=== PATIENT | female | born 1995 | race Caucasian/White ===

== ENCOUNTER 2021-09-30 22:02 | Emergency (ER) | payer BC, OTHER, SELFPAY ==
--- NOTE | ~2021-09-30 | CT_ITS ---
EXAMINATION: CTA chest PE protocol DATE: 10/01/2021 07:47 CDT INDICATION: Left-sided chest pain. Elevated d-dimer. TECHNIQUE: Computed tomographic angiography (CTA) of the chest was performed with 100 mL Omnipaque-35 0 intravenous contrast. The dose-length product was 423.18 mGy-cm. Maximum intensity projection 3D-re constructions of the aorta and other arteries were constructed by the technologist on a separate work station. Automated exposure control and iterative reconstruction technique were employed. COMPARISON: None. FINDINGS: Study is technically adequate without evidence for pulmonary embolism. No significant pleur al or pericardial effusion. No thoracic lymphadenopathy. No evidence for aortic aneurysm or dissectio n. Upper abdomen is unremarkable. No focal airspace consolidation. No pneumothorax. No suspicious pul monary nodules or masses. IMPRESSION: 1. No acute cardiopulmonary disease. No evidence for pulmonary embolism. Reviewed, dictated and finalized at location A.
--- NOTE | 2021-09-30 22:06 | ECG_ITS ---
Measurements Intervals [place] Rate: 74 P: 23 CA: 148 QRS: 56 QRSD: 89 T: 39 QT: 367 QTc: 409 Interpretive Statements SINUS RHYTHM WITH SINUS ARRHYTHMIA NO PREVIOUS ECG AVAILABLE FOR COMPARISON Electronically Signed On 09-30-2021 22:54:21 CDT by Steph Nelson M.D.
[2021-09-30 22:22] VITALS: BP 112/77; PULSE 80; RESP 18; TEMP 36.8; O2SAT 100
[2021-09-30 22:25] LABS: Basophils Percent Auto 0.4 % (0.2-1.2); Eosinophils Absolute Auto 0.1 K/mm3 (0-0.3); Eosinophils Percent Auto 1.1 % (0-4.4); Hematocrit 32.1 % (37.0-47.0); Hemoglobin 10.7 g/dL (12.0-15.0); Immature Granulocyte Percent A 2.8 % (0-0.5); Lymphocytes Absolute Auto 2.42 K/mm3 (0.9-3.2); Lymphocytes Percent Auto 22.6 % (18.3-44.2); Mean Corpuscular HGB Conc 33.3 g/dl (32-36); Mean Corpuscular Hemoglobin 31.8 pg (26-34); Mean Corpuscular Volume 95.3 fl (80-100); Mean Platelet Volume 10.3 fl (7.4-10.4); Monocytes Absolute Auto 0.9 K/mm3 (0.1-0.6); Monocytes Percent Auto 8.3 % (2.6-8.5); Neutrophils Absolute Auto 6.9 K/mm3 (1.3-6.7); Neutrophils Percent Auto 64.8 % (45.5-73.1); Platelet Count Result 214 k/mm3 (150-375); Red Blood Count 3.37 M/mm3 (4.2-5.4); Red Cell Distribution Width 13.2 % (11.5-14.5); White Blood Count 10.7 K/mm3 (4.5-10.0)
[2021-09-30 22:35] LABS: Prothrombin Time 12.6 Seconds (11.1-14.7)
[2021-09-30 22:36] LABS: Partial Thromboplastin Time 25.6 SECONDS (22.3-36.8)
[2021-09-30 22:37] LABS: Alanine Aminotransferase 21 U/L (6-35); Albumin Level 3.8 g/dL (3.5-5.1); Alkaline Phosphatase 53 U/L (38-126); Anion Gap 5 mmol/L (8-16); Aspartate Amino Transferase 25 U/L (14-36); Bilirubin,Total 0.1 mg/dL (0.2-1.3); Blood Urea Nitrogen 13 mg/dL (7-17); Calcium 8.8 mg/dL (8.4-10.2); Carbon Dioxide 24 mmol/L (22-30); Chloride 106 mmol/L (98-107); Estimated CRCL calculation 75 ml/min; Estimated Glomerular Filt Rate > 60; Glucose 91 mg/dL (65-110); Lipase 142 U/L (23-300); Potassium 3.7 mmol/L (3.4-5.0); Sodium 135 mmol/L (137-145)
[2021-09-30 22:57] LABS: Troponin I < 0.012 ng/mL (0.000-0.034)
[2021-10-01 01:25] VITALS: BP 117/64; PULSE 82; RESP 18; O2SAT 99
--- NOTE | 2021-10-01 01:38 | ED.GENADULT ---
HPI - General Adult General Chief complaint: Chest Pain Stated complaint: chest pain Time Seen by Provider: 10/01/21 01:00 History of Present Illness HPI narrative: 26-year-old female that is 31 weeks presents to the emergency department for evaluation of left-sided chest pain. Patient states earlier this afternoon she began developing some left-sided chest pain that did radiate down her left arm. Patient also does describe some associated shortness of breath. Patient denies any prior history of PE or DVT. Patient did have COVID in the beginning of her and was advised to take a daily aspirin. Patient does have some long extremity swelling but denies any calf pain. Related Data Allergies Allergy/AdvReac Type Severity Reaction Status Date / Time clindamycin Allergy Anaphylaxis Verified 10/01/21 01:26 Review of Systems Review of Systems: CONSTITUTIONAL: Denies fever, chills, or sweats. EYES: Denies visual changes, redness, or discharge. ENT: Denies rhinorrhea, congestion, sore throat, or otalgia. CARDIOVASCULAR: See HPI RESPIRATORY: Denies cough or dyspnea. GASTROINTESTINAL: Denies abdominal pain, nausea, vomiting, or diarrhea. GENITOURINARY: Denies dysuria or hematuria. SKIN: Denies rash or itching. MUSCULOSKELETAL: Denies back pain, joint pain, or myalgia. NEUROLOGIC: Denies headache, numbness, or weakness. Exam Narrative: APPEARANCE: Well appearing, no pain, no distress, well-nourished. HEAD: normocephalic, atraumatic. EYES: PERRLA/EOMI, conjunctivae clear. NOSE: Normal no drainage THROAT: Pharynx clear, no exudate. NECK: Supple. No adenopathy, no masses. RESPIRATORY: Airway patent, respirations nonlabored. Clear to auscultation bilaterally, no rales, rhonchi, wheezing. CARDIOVASCULAR: Regular rate and rhythm without murmurs rubs or gallops. Some reproducible left-sided chest wall tenderness to palpation. ABDOMINAL: Soft, nontender, nondistended, normal bowel sounds MUSCULOSKELETAL: Moves all extremities. Strength/ROM intact, No edema, No calf tenderness. No medial thigh tenderness NEURO: Alert. Cranial nerves II through XII intact. Grossly intact SKIN: Warm, dry. Normal Color Course Course Emergency Course: Bedside M-mode ultrasound showed active movement with a heart rate of 143. Patient did have an elevated dimer so a CTA was ordered. Patient had negative serial troponins. CT was negative for pulm embolism. Patient does feel improved. Patient was updated on the results of her work-up. 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 Vital Signs Vital signs: Vital Signs Temperature 98.2 F 09/30/21 22:22 Pulse Rate 80 09/30/21 22:22 Respiratory Rate 18 09/30/21 22:22 Blood Pressure 112/77 09/30/21 22:22 Pulse Oximetry 100 09/30/21 22:22 Oxygen Delivery Room Air 09/30/21 22:22 Temperature 98.2 F 09/30/21 22:22 Pulse Rate 88 10/01/21 04:33 Respiratory Rate 18 10/01/21 04:33 Blood Pressure 102/67 10/01/21 04:33 Pulse Oximetry 99 10/01/21 04:33 Oxygen Delivery Room Air 09/30/21 22:22 Medical Decision Making Vital Signs Vital Signs: Vital Signs Temperature 98.2 F 09/30/21 22:22 Pulse Rate 80 09/30/21 22:22 Respiratory Rate 18 09/30/21 22:22 Blood Pressure 112/77 09/30/21 22:22 Pulse Oximetry 100 09/30/21 22:22 Oxygen Delivery Room Air 09/30/21 22:22 Temperature 98.2 F 09/30/21 22:22 Pulse Rate 88 10/01/21 04:33 Respiratory Rate 18 10/01/21 04:33 Blood Pressure 102/67 10/01/21 04:33 Pulse Oximetry 99 10/01/21 04:33 Oxygen Delivery Room Air 09/30/21 22:22 Lab Data Lab results reviewed: Yes I reviewed the patient's lab results. Result diagrams: 09/30/21 22:20 09/30/21 22:20 Labs: Lab Results 09/30/21 09/30/21 09/30/21 Range/Units 22:20 22:20 22:20 WBC 10.7 H (4.5-10.0) K/mm3 RBC 3.37 L (4.2-5
[2021-10-01 01:48] LABS: D Dimer 1.26 ug/mL (<0.48)
[2021-10-01 02:17] LABS: Troponin I < 0.012 ng/mL (0.000-0.034)
[2021-10-01 02:42] VITALS: BP 105/57; PULSE 77; RESP 16; O2SAT 100
[2021-10-01 03:48] VITALS: BP 105/67; PULSE 79; RESP 18; O2SAT 98
[2021-10-01 04:33] VITALS: BP 102/67; PULSE 88; RESP 18; O2SAT 99
[2021-10-01 05:54] VITALS: BP 116/18; PULSE 65; RESP 18; O2SAT 99
== END 2021-10-01 05:54 | disposition home or self-care (01) ==
PROVIDERS: Emergency Provider Emergency Medicine
DX: O26.893 Other specified pregnancy related conditions, third trimester (principal); R07.81 Pleurodynia; Z86.16 Personal history of COVID-19; Z79.82 Long term (current) use of aspirin; Z3A.31 31 weeks gestation of pregnancy
CPT/HCPCS: 36415; 71275; 80053; 83690; 84484; 85025; 85380; 85610; 85730; 93005; 99284; Q9967

== ENCOUNTER 2021-11-01 11:17 | Outpatient (CLI) | payer BC, OTHER, SELFPAY ==
[2021-11-01 12:34] VITALS: BP 115/72; PULSE 78
[2021-11-01 13:00] LABS: Appearance Urine Clear (Clear); Bilirubin Urine Negative (Negative); Glucose Urine UA Negative (Negative); Ketones Urine Negative (Negative); Leukocyte Esterase Ur Negative LEU/UL (Negative); Nitrate Urine Negative (Negative); Protein Urine Negative (Negative); Specific Grav Ur 1.015 (1.001-1.035); Urobilinogen Urine 0.2 mg/dL (<2.0); pH Urine 6.5 (5.0-9.0)
[2021-11-01 13:05] LABS: Amorphous Sediment Urine Few; Bacteria Urine Trace /hpf; Squamous Epithelial Cell Urine Rare /hpf (Few)
[2021-11-01 13:21] LABS: Add Urine Microscopic? YES; Blood Urine Trace-Intact (Negative); Color Urine Light Yellow (Yellow)
== END 2021-11-01 13:34 | disposition home or self-care (01) ==
LOC: ANHOBOP 12:04
PROVIDERS: Obstetrics & Gynecology; Visit Provider Obstetrics & Gynecology
DX: O42.90 Premature rupture of membranes, unspecified as to length of time between rupture and onset of labor, unspecified weeks of gestation (principal); Z3A.00 Weeks of gestation of pregnancy not specified
CPT/HCPCS: 59025; 81001

== ENCOUNTER 2021-11-21 18:29 | Observation (INO) | payer SELFPAY ==
--- NOTE | 2021-11-21 18:29 | OBADM ---
This patient, Mony Kuhn, admitted to the OB room Labor/Delivery/Recovery 120 for observation. Patient/family oriented to hospital policies and general routines including ID bracelet, bed and alarms, visiting hours, pain management, procedures, bathroom and other care routines, personal items, smoking policy, room service/diet, and visiting hours. Patient/Family are encouraged to report perceived risks to care and to ask questions if they do not understand what they are told or what they should do.
[2021-11-21 18:40] VITALS: TEMP 37; BMI 29.5
--- NOTE | 2021-11-21 19:54 | PC.NURSE ---
Updated Dr. Pak on patient unchanged SVE after monitoring. Patient is having irregular mild contractions with uterine irritability between. Abdomen palpates soft between contractions. movement palpated. FHT reactive. VSS. Order to discharge patient to home.
--- NOTE | 2021-12-13 20:24 | PM.OBTRLD ---
OB - Triage/Final Diagnosis Visit Information Comments/Additional reasons for admission: I have assessed the risk for this patient, Mony Kuhn, and determined that she would benefit from observation care. Final Diagnosis (1) False labor: Code(s): O47.9 - False labor, unspecified Status: Acute
== END 2021-11-21 20:23 | disposition home or self-care (01) ==
PROVIDERS: Admitting Provider Obstetrics & Gynecology; Visit Provider Obstetrics & Gynecology
DX: O47.1 False labor at or after 37 completed weeks of gestation (principal); Z3A.37 37 weeks gestation of pregnancy
CPT/HCPCS: G0378; G0379

== ENCOUNTER 2021-11-28 11:30 | Outpatient (CLI) | payer BC, OTHER, SELFPAY ==
[2021-11-28 11:42] LABS: Hematocrit 33.1 % (37.0-47.0); Hemoglobin 11.3 g/dL (12.0-15.0); Mean Corpuscular HGB Conc 34.1 g/dl (32-36); Mean Corpuscular Hemoglobin 31.2 pg (26-34); Mean Corpuscular Volume 91.4 fl (80-100); Mean Platelet Volume 10.7 fl (7.4-10.4); Platelet Count Result 192 k/mm3 (150-375); Red Blood Count 3.62 M/mm3 (4.2-5.4); White Blood Count 8.8 K/mm3 (4.5-10.0)
[2021-11-30 07:35] LABS: Rapid Plasma Reagin Non-Reactive (NonReactive)
== END 2021-11-28 11:31 | disposition home or self-care (01) ==
PROVIDERS: Visit Provider Obstetrics & Gynecology
DX: Z34.93 Encounter for supervision of normal pregnancy, unspecified, third trimester (principal); Z3A.00 Weeks of gestation of pregnancy not specified
CPT/HCPCS: 36415; 85027; 86592; 86850; 86900; 86901

== ENCOUNTER 2021-11-30 05:22 | Inpatient (IN) | payer BC, OTHER, SELFPAY ==
--- NOTE | 2021-11-18 13:41 | PC.NURSE ---
Verified with or schedule and patient--C/S on 11/30/21 at 0730 Patient given requisition for lab draw on 11/28/21
[2021-11-30] VITALS (59 sets, daily range): BP systolic 92–174; BP diastolic 47–123; PULSE 64–134; RESP 11–19; TEMP 36.3–36.8; O2SAT 96–100; BMI 29.5
--- NOTE | 2021-11-30 05:22 | LDADM ---
This patient, Mony Kuhn, was admitted to Labor/Delivery/Recovery 120 on 11/30/21 at 05:22. Plans for labor, pain management and were discussed with patient. Patient/family oriented to hospital policies and general routines including ID bracelet, bed and alarms, visiting hours, pain management, procedures, bathroom and other care routines, personal items, smoking policy, room service/diet and guest tray routines, security routines, and visiting hours. Patient/Family are encouraged to report perceived risks to care and to ask questions if they do not understand what they are told or what they should do. See OBIX for further documentation.
[2021-11-30] MEDS: LACTATED RINGERS 1,000 ML 125 ML IV CONT (06:28)
--- NOTE | 2021-11-30 06:56 | WPDANESEPPF ---
Anes - Initial Pre Proc Eval Procedure: Operation Date: 11/30/21 07:30 Proposed Procedures p Repeat Section - Renetta Callejas MD Date/Time: 11/30/21 06:56 Surgeon: Renetta Callejas MD Pre Op Diagnosis: C/S Patient Data Age: 26 Gender: F Height: 1.63 m Weight: 78 kg Last Vital Signs Temp 36.8 C 11/30/21 06:37 Pulse 100 11/30/21 06:37 BP 108/70 11/30/21 06:37 O2 Del Method Room Air 11/30/21 06:11 Allergies Allergy/AdvReac Type Severity Reaction Status Date / Time clindamycin Allergy Severe Anaphylaxis Verified 11/30/21 06:30 grapefruit Allergy Severe Anaphylaxis Verified 11/30/21 06:30 Home Medications Medication Instructions Recorded Confirmed Type aspirin 81 mg tablet 81 mg PO DAILY 11/18/21 11/30/21 History magnesium 200 mg tablet 200 mg PO DAILY 11/18/21 11/30/21 History pantoprazole 40 mg tablet,delayed 40 mg PO HS 11/18/21 11/30/21 History release (Protonix) prenat.vits,vic,adb-qafc-zrggg 1 tablet PO DAILY 11/18/21 11/30/21 History Patient hx anesthesia problems: none Family hx anesthesia problems: none Results Review: All pre-operative results and documents have been reviewed as part of the pre-operative evaluation. [facility] Family History Family History (Updated 11/18/21 @ 13:21 by Dino Yanes RN) Sibling Non-Hodgkin lymphoma Mother Hypertension Grandparent Hypertension Daughter Hydrocephalus Social History Social History Smoking status: Never smoker Substance use: never Spiritual care concerns: No Anes - Eval Final PreProcedure Day of Procedure 11/30/21 06:56 Patient weight: overweight Heart: regular rate and rhythm Lungs: clear to auscultation and normal air movement Airway: Mallampati scale class II Neurological: alert and oriented Last oral intake: >/= 8 hours ASA classification: II Emergent: no Anesthetic plan: proceed Anesthesia type and monitoring: regional spinal Results Review: All pre-operative results and documents have been reviewed as part of the pre-operative evaluation. Informed Consent: The patient's anesthetic plan and its attendant risks and benefits were discussed with the patient/family/POA. Questions were solicited and answers provided to the satisfaction of the patient/family/POA.
--- NOTE | 2021-11-30 07:09 | PM.IMHP ---
H&P: HPI History of Present Illness Date/Time: 11/30/21 07:09 Chief Complaint: repeat CS Narrative: Shaye is a 26yo at 39.1 for repeat CS. First preg CS for hydrocephalus, this uncomplicated except by covid at 8-9 weeks. Review of Systems Review of Systems: All systems reviewed & are unremarkable except as noted in HPI and below PMFSH Family History Family History (Updated 11/18/21 @ 13:21 by Dino Yanes RN) Sibling Non-Hodgkin lymphoma Mother Hypertension Grandparent Hypertension Daughter Hydrocephalus Social History Social History Smoking status: Never smoker Substance use: never Spiritual care concerns: No Meds Home Medications and Allergies Home Medications Medication Instructions Recorded Confirmed Type aspirin 81 mg tablet 81 mg PO DAILY 11/18/21 11/30/21 History magnesium 200 mg tablet 200 mg PO DAILY 11/18/21 11/30/21 History pantoprazole 40 mg tablet,delayed 40 mg PO HS 11/18/21 11/30/21 History release (Protonix) prenat.vits,vic,bnu-seju-omqvk 1 tablet PO DAILY 11/18/21 11/30/21 History Allergies Allergy/AdvReac Type Severity Reaction Status Date / Time clindamycin Allergy Severe Anaphylaxis Verified 11/30/21 06:30 grapefruit Allergy Severe Anaphylaxis Verified 11/30/21 06:30 Vital Signs Vital Signs - 24 hr 11/30/21 06:37 11/30/21 06:11 Temperature 98.3 F Pulse Rate 100 Blood Pressure 108/70 Oxygen Delivery Room Air Exam Const: General: no acute distress Resp: Effort & Inspection: normal respiratory effort Auscultation: clear to auscultation bilaterally Cardio: Rate: regular rate Rhythm: regular rhythm GI: GI Palp: Yes Soft to palpation Extrem: General: normal to inspection Assessment and Plan Assessment and plan (1) History of delivery: Code(s): Z98.891 - History of uterine scar from previous surgery Status: Acute Plan repeat CS previously discussed RBA and consented
[2021-11-30] MEDS: LACTATED RINGERS 1,000 ML 999 ML IV CONT (07:12)
--- NOTE | 2021-11-30 09:16 | WPDHPUPDATE1 ---
History and Physical Update Update Date/Time: 11/30/21 09:16 History and Physical has been reviewed, including an updated exam of the patient. There are NO changes in the patient's condition. Risks, benefits, and alternatives have been discussed and questions answered. Patient agrees to proceed with procedure.
[2021-11-30] MEDS: KETOROLAC 30 MG/ML VIAL (*BKC) IV PUSH (10:02)
--- NOTE | 2021-11-30 10:07 | PM.OBPRVD ---
OB - Delivery Note Procedure Delivery date: 11/30/21 Procedure: Procedures Operation Date: 11/30/21 07:30 <No data on this case meets the specified criteria> Repeat low transverse section Events: Previous Delivery Route of delivery: Specimen: Yes (placenta) Quantitative Blood Loss (ml): 450 Anesthesia type: Spinal Disposition: Floor Complications: none Narrative: The patient was taken to the OR and received spinal anesthesia. She was placed in dorsal supine position with left lateral tilt. SCDs and andres were placed. She was prepped and draped in the normal sterile fashion. A Pfannensteil skin incision was made and carried through to the underlying layer of fascia. The fascia was incised in the midline and then extended laterally using Fong scissors. The muscles were in the midline and the peritoneum was entered bluntly. Some omental adhesions were taken down with bovie and with cutting and tying pedicles to free up the uterine window. The bladder blade was then inserted, the vesicouterine peritoneum was grasped, incised with Metzenbaum scissors, and a bladder flap created. The bladder blade was reinserted. A low transverse uterine incision was made with a scalpel and extended bluntly. AROM was performed and fluid was noted to be clear. The head was delivered, followed by the remainder of the baby. The baby's oropharynx was suctioned. After 30 seconds, the cord was clamped and cut and the was handed off. Cord blood was obtained and the placenta was then removed manually. The uterus was exteriorized. A moist lap sponge was used to curette the endometrium. The uterine incision was then closed with one layer of 0-Vicryl in a running, locking fashion. Good hemostasis was noted. The posterior cul de sac was irrigated with normal saline and cleared of all clot and debris. The uterus was returned to the abdomen. Both lateral gutters were then irrigated. The rectus muscles were inspected and found to be hemostatic. The fascia was reapproximated using 0-Vicryl in running fashion. The subcutaneous tissue was irrigated with normal saline and made hemostatic with Bovie electrocautery. The skin was then closed with absorbable wilman. Steri strips and a bandage were applied. The uterus was evacuated. The patient tolerated the procedure very well. All counts were correct. She was taken to the recovery room in good condition. [place] Baby Date of : 11/30/21 Time of : 09:45 Weeks of gestation at delivery: 39 gender: Female Weight (pounds): 7 Weight (ounces): 15 presentation: vertex Placenta delivery description: Manual Removal Cord Vessel Description: 3 Vessels and Delayed Cord Clamping score one minute: 8 score five minutes: 9
--- NOTE | 2021-11-30 13:50 | OBPPTRN ---
124 Patient transferred to post room #292 via stretcher. Support person present. Oriented to unit, room, information board, rooming in, admission packet and security measures. Patient verbalizes understanding.
[2021-11-30] MEDS: KCL 20 MEQ/D5/0.45% SOD CHL 1,000 ML 125 ML IV CONT (15:42)
[2021-11-30] MEDS: IBUPROFEN 600 MG TABLET PO (22:22)
[2021-11-30] MEDS: HYDROcodone/acetaminophen (*CRX) 10-325 MG TABLET 1 TAB PO (22:23)
[2021-12-01 01:10] VITALS: BP 100/59; PULSE 78; RESP 14; TEMP 36.9; O2SAT 98
[2021-12-01] MEDS: IBUPROFEN 600 MG TABLET PO ×3 (04:19→17:55)
[2021-12-01] MEDS: HYDROcodone/acetaminophen (*CRX) 10-325 MG TABLET 1 TAB PO ×5 (04:20→19:14)
[2021-12-01 04:25] VITALS: BP 101/56; PULSE 69; RESP 14; TEMP 36.3; O2SAT 98
[2021-12-01 05:59] LABS: Basophils Absolute Auto 0.1 K/mm3 (0.0-0.1); Basophils Percent Auto 0.4 % (0.2-1.2); Eosinophils Absolute Auto 0.1 K/mm3 (0-0.3); Eosinophils Percent Auto 0.4 % (0-4.4); Hematocrit 28.2 % (37.0-47.0); Hemoglobin 9.2 g/dL (12.0-15.0); Immature Granulocyte Absolute 0.15 K/mm3 (0.00-0.031); Immature Granulocyte Percent A 1.1 % (0-0.5); Lymphocytes Absolute Auto 2.24 K/mm3 (0.9-3.2); Lymphocytes Percent Auto 16.7 % (18.3-44.2); Mean Corpuscular HGB Conc 32.6 g/dl (32-36); Mean Corpuscular Hemoglobin 30.7 pg (26-34); Mean Platelet Volume 11.2 fl (7.4-10.4); Monocytes Percent Auto 7.7 % (2.6-8.5); Neutrophils Absolute Auto 9.9 K/mm3 (1.3-6.7); Neutrophils Percent Auto 73.7 % (45.5-73.1); Platelet Count Result 181 k/mm3 (150-375); Red Cell Distribution Width 13.2 % (11.5-14.5); White Blood Count 13.4 K/mm3 (4.5-10.0)
[2021-12-01] MEDS: DOCUSATE SODIUM 100 MG CAPSULE PO (07:43)
[2021-12-01] MEDS: POLYSACCHARIDE IRON COMPLEX 150 MG CAPSULE PO (07:43)
--- NOTE | 2021-12-01 08:12 | PM.OBPNVD ---
OB - PN: Subj Subjective Date/time seen: 12/01/21 08:12 Patient comments: no complaints baby status: doing well and bottle feeding well [place] feeding status: exclusively bottle feeding Narrative: POD 1 from primary CS. Doing well. Normal lochia. Eating, ambulating, andres out. OB - PN: Obj Data Labs CBC & Chem 7: 12/01/21 04:41 Labs: Laboratory Results - last 24 hr 12/01/21 04:41 WBC 13.4 H RBC 3.00 L Hgb 9.2 L Hct 28.2 L MCV 94.0 MCH 30.7 MCHC 32.6 RDW 13.2 Plt Count 181 MPV 11.2 H Immature Gran % (Auto) 1.1 H Neut % (Auto) 73.7 H Lymph % (Auto) 16.7 L [place] % (Auto) 7.7 Eos % (Auto) 0.4 Baso % (Auto) 0.4 Lymph # (Auto) 2.24 [place] # (Auto) 1.0 H Eos # (Auto) 0.1 Baso # (Auto) 0.1 Abs Immat Gran (auto) 0.15 H Absolute Neuts (auto) 9.9 H Absolute Nucleated RBC 0.0 Nucleated RBC % 0.0 OB - PN A/P Plan day: 1 Plan: routine care Time Spent With Patient Time: Total time spent is greater than 50% in coordination of care (as documented) at patient's floor/unit and/or counseling patient: Exam Narrative: NAD abdomen soft, appropriately tender, incision bandaged Extremities nontender with 1+ edema
[2021-12-01 08:45] VITALS: BP 106/63; PULSE 75; RESP 16; TEMP 36.4; O2SAT 100
--- NOTE | 2021-12-01 08:45 | WPDANLDPN2 ---
Anes-Prog Note L&D Date/Time: 12/01/21 08:45 Comfortable throughout: labor and delivery Neuraxial method: epidural Epidural/Spinal procedure site: clean & non-tender Neuro status: Neuro function grossly intact. Cardiovascular status: normal Respiratory status: normal Airway patency: baseline Mental status: baseline Post-Op hydration status: normal Vital Signs: Last Vital Signs Temp 36.3 C L 12/01/21 04:25 Pulse 69 12/01/21 04:25 Resp 14 12/01/21 04:25 BP 101/56 L 12/01/21 04:25 Pulse Ox 98 12/01/21 04:25 O2 Del Method Room Air 12/01/21 07:43 Pain score (VAS): 04/13 I/O: Intake & Output 11/30/21 12/01/21 12/01/21 23:59 07:59 15:59 Intake Total 1800 2400 Output Total 3500 1600 Balance -1700 800 Post-procedural complaints: none Patient feedback: Patient satisfied with anesthetic care.
--- NOTE | 2021-12-01 08:47 | WPDANLDNPN2 ---
Anes-Prog Note L&D-Neuraxial Date/Time: 12/01/21 08:47 Neuraxial medications: intrathecal PF morphine Opiod-related complaints: none Patient feedback: Patient satisfied with post-operative pain management.
[2021-12-01 12:18] VITALS: BP 110/62; PULSE 81; RESP 18; TEMP 36.6; O2SAT 97
[2021-12-01 17:45] VITALS: BP 105/68; PULSE 71; RESP 18; TEMP 36.5; O2SAT 99
[2021-12-01 20:00] VITALS: BP 95/57; PULSE 79; RESP 16; RESP 18; TEMP 36.4; O2SAT 99
[2021-12-01] MEDS: HYDROcodone/acetaminophen (*CRX) 5-325 MG TABLET 1 TAB PO (21:34)
[2021-12-02] MEDS: HYDROcodone/acetaminophen (*CRX) 10-325 MG TABLET 1 TAB PO ×4 (03:51→21:34)
[2021-12-02] MEDS: IBUPROFEN 600 MG TABLET PO ×3 (03:52→21:35)
[2021-12-02] MEDS: HYDROcodone/acetaminophen (*CRX) 5-325 MG TABLET 1 TAB PO (08:03)
[2021-12-02] MEDS: DOCUSATE SODIUM 100 MG CAPSULE PO ×2 (08:04→17:51)
[2021-12-02] MEDS: MULTIVIT/MIN/PREN/FOL AC/IRON TABLET 1 TAB PO (08:04)
[2021-12-02] MEDS: POLYSACCHARIDE IRON COMPLEX 150 MG CAPSULE PO ×2 (08:04→17:51)
--- NOTE | 2021-12-02 08:06 | PM.OBPNVD ---
OB - PN: Subj Subjective Date/time seen: 12/02/21 08:06 Patient comments: no complaints and incisional pain [place] baby status: doing well and bottle feeding well [place] feeding status: exclusively bottle feeding Narrative: would like to stay another day due to pain. OB - PN: Obj Data Labs CBC & Chem 7: 12/01/21 04:41 OB - PN A/P Plan day: 2 Plan: routine care Time Spent With Patient Time: Total time spent is greater than 50% in coordination of care (as documented) at patient's floor/unit and/or counseling patient: Exam Narrative: NAD abdomen soft, appropriately tender, incision CDI Extremities nontender with 1+ edema
[2021-12-02 08:40] VITALS: BP 112/69; PULSE 69; RESP 16; TEMP 36.8; O2SAT 100
[2021-12-02 12:14] VITALS: BP 111/58; PULSE 77; RESP 16; TEMP 36.4; O2SAT 98
[2021-12-02 16:50] VITALS: BP 116/71; PULSE 83; RESP 18; TEMP 36.7; O2SAT 100
[2021-12-02 19:50] VITALS: BP 116/67; PULSE 77; RESP 18; TEMP 36.6
[2021-12-03] VITALS: BP 112/63
[2021-12-03 04:25] VITALS: BP 118/68
[2021-12-03] MEDS: IBUPROFEN 600 MG TABLET PO ×2 (04:32→10:20)
[2021-12-03] MEDS: HYDROcodone/acetaminophen (*CRX) 5-325 MG TABLET 1 TAB PO ×2 (04:32→10:20)
--- NOTE | 2021-12-03 05:23 | PC.NURSE ---
Patient viewed the discharge video Mother & Baby Care, The First Two Weeks . Patient was given the opportunity and encouraged to ask questions. Patient verbalized understanding of information shared and has been given the mother/baby guide for home reference.
[2021-12-03 07:35] VITALS: BP 115/70; PULSE 71; RESP 16; TEMP 36.6; O2SAT 100
--- NOTE | 2021-12-03 08:09 | PM.OBPNVD ---
OB - PN: Subj Subjective Date/time seen: 12/03/21 08:09 Patient comments: no complaints, pain well controlled, incisional pain, tolerating diet and flatus present OB - PN: Obj Data Labs CBC & Chem 7: 12/01/21 04:41 OB - PN A/P Plan day: 3 Plan: routine care, discharge home and other Comments: Incision check in one week. Given precautions Time Spent With Patient Time: Total time spent is greater than 50% in coordination of care (as documented) at patient's floor/unit and/or counseling patient: Exam Const: General: comfortable, no acute distress and alert Resp: Effort & Inspection: normal respiratory effort Auscultation: no crackles, no rales and no rhonchi Cardio: Rate: regular rate Heart sounds: no click, no murmurs and no rubs GI: Inspection: non-distended GI Palp: No Tenderness to palpation present (GI) Auscultation: normal bowel sounds Other: Incision - CDI Extrem: General: normal to inspection, no pedal edema and no calf tenderness
--- NOTE | 2021-12-03 08:09 | PM.OBDSVD ---
DS: Admitting Diagnosis Discharge Date December 03, 2021 Admitting Diagnosis term OB - DS: Summary OB Procedures : None OB Procedures Intrapartum: OB Procedures: : None Peripartum Data Procedures: Procedures Operation Date: 11/30/21 07:30 Actual Procedure Side Surgeon p Repeat Section Bilateral Renetta Callejas MD Time Spent with Patient Time attestation: Total time spent providing and/or coordinating discharge services: Discharge Plan Discharge Discharging Clinician: Kianna Pak Patient Disposition: Home, Self-Care Activity: pelvic rest Diet: regular Patient Instructions: Antibiotic Form Stand Alone Forms: General Discharge Information Follow-up/Referrals: Kianna Pak MD [Physician] - Discharge Medications: New hydrocodone-acetaminophen 5-325 mg tablet 1 tablet PO Q4H PRN (Reason: pain) Qty: 25 0RF Continued pantoprazole [Protonix] 40 mg Tablet,Delayed Release (Dr/Ec) 40 mg PO HS aspirin 81 mg Tablet 81 mg PO DAILY magnesium 200 mg Tablet 200 mg PO DAILY prenat.vits,vic,soj-rjdw-tlfvy Tablet 1 tablet PO DAILY Date of admission: 11/30/21 05:22 Primary Care Provider: Alfonso Albarran Admitting Provider: Renetta Callejas Attending physician on admission: Renetta Callejas Condition: Stable
[2021-12-03] MEDS: MULTIVIT/MIN/PREN/FOL AC/IRON TABLET 1 TAB PO (10:19)
[2021-12-03] MEDS: DOCUSATE SODIUM 100 MG CAPSULE PO (10:20)
[2021-12-03] MEDS: POLYSACCHARIDE IRON COMPLEX 150 MG CAPSULE PO (10:20)
[2021-12-04 08:02] VITALS: BP 110/74; PULSE 88; RESP 20; TEMP 36.6; O2SAT 99
== END 2021-12-03 11:47 | disposition home or self-care (01) | DRG 788 ==
LOC: ANHOB2 12-03 11:14 → ANHLDR 12-04 10:37
PROVIDERS: Admitting Provider Obstetrics & Gynecology; Visit Provider Obstetrics & Gynecology
PROC: 10D00Z1 Extraction of Products of Conception, Low, Open Approach (ICD-10-PCS; CPT 59514; principal; 2021-11-30 07:30)
DX: O34.219 Maternal care for unspecified type scar from previous cesarean delivery (principal); O99.824 Streptococcus B carrier state complicating childbirth; Z86.16 Personal history of COVID-19; Z79.82 Long term (current) use of aspirin; Z3A.39 39 weeks gestation of pregnancy; Z37.0 Single live birth
CPT/HCPCS: 36415; 85025; 85027; 86592; 86850; 86900; 86901; A9270; J0131; J1100; J1885; J2274; J2405; J2590; J3480; J7120